=== PATIENT | male | born 2000 | race Caucasian/White ===

== ENCOUNTER 2024-09-10 10:39 | Emergency (ER) | payer BC ==
[~2024-09-10] VITALS: Ht 177.8 cm; Wt 72.6 kg
[2024-09-10 10:39] VITALS: BP 133/72; PULSE 75; RESP 18; TEMP 98.1; O2SAT 98
[2024-09-10] MEDS ORDERED: TETRACAINE HCL EACHEYE STA (10:50)
[2024-09-10] MEDS ORDERED: FUL-GLO OP ONE (11:14)
[2024-09-10] MEDS ORDERED: ERYTHROMYCIN ONE (11:26)
[2024-09-10] MEDS: ERYTHROMYCIN LEFT EYE STA (11:30)
[2024-09-10 11:34] VITALS: BP 142/89; PULSE 79; RESP 18; TEMP 98.1; O2SAT 98
== END 2024-09-10 11:36 | disposition home or self-care (01) ==
LOC: ER 10:39
DX: H10.32 Unspecified acute conjunctivitis, left eye (principal)
CPT/HCPCS: 99283

== ENCOUNTER 2024-10-10 01:41 | Emergency (ER) | payer BC ==
[~2024-10-10] VITALS: Ht 177.8 cm; Wt 42.6 kg
[2024-10-10 02:15] VITALS: BP 157/75; PULSE 88; RESP 20; TEMP 36.78072; O2SAT 94
[2024-10-10 02:25] VITALS: BP 157/75; PULSE 88; RESP 20; TEMP 98.2; O2SAT 94
[2024-10-10] MEDS ORDERED: TORADOL ONE (02:30)
[2024-10-10] MEDS: TORADOL IV STA (02:38)
[2024-10-10 02:39] VITALS: BP 145/71; PULSE 91; RESP 20; TEMP 98.2; O2SAT 94
== END 2024-10-10 02:43 | disposition home or self-care (01) ==
LOC: ER 01:41
DX: S49.92XA Unspecified injury of left shoulder and upper arm, initial encounter (principal); F12.90 Cannabis use, unspecified, uncomplicated; W01.0XXA Fall on same level from slipping, tripping and stumbling without subsequent striking against object, initial encounter; Y93.89 Activity, other specified; Y92.89 Other specified places as the place of occurrence of the external cause; Y99.8 Other external cause status
CPT/HCPCS: 99284; 96374; 73030; J1885

== ENCOUNTER 2024-10-16 13:01 | Emergency (ER) | payer BC ==
[~2024-10-16] VITALS: Ht 177.8 cm; Wt 70.3 kg
[2024-10-16 13:04] VITALS: BP 141/74; PULSE 105; RESP 18; TEMP 98.2; O2SAT 98
[2024-10-16] MEDS ORDERED: TORADOL ONE (13:22)
[2024-10-16] MEDS: TORADOL IM STA (13:27)
[2024-10-16 14:00] VITALS: BP 136/68; PULSE 83; RESP 18; O2SAT 94
== END 2024-10-16 14:00 | disposition home or self-care (01) ==
LOC: ER 13:01
DX: M25.512 Pain in left shoulder (principal); F12.90 Cannabis use, unspecified, uncomplicated
CPT/HCPCS: 99284; 73200; 96372; J1885